=== PATIENT | male | born 1970 | race Caucasian/White ===

== ENCOUNTER 2017-07-30 19:18 | Emergency (ER) | payer OTHER ==
[~2017-07-30] VITALS: Ht 170.2 cm; Wt 107.3 kg
[2017-07-30] MEDS ORDERED: IBUPROFEN 800 MG TABLET PO ONE (21:15)
[2017-07-30] MEDS ORDERED: LIDOCAINE HCL/PF 1% 5 ML VIAL INJ ONE (21:15)
[2017-07-30] MEDS ORDERED: POVIDONE-IODINE 10% 15 ML SOLUTION UD TP ONE (21:15)
[2017-07-30] MEDS ORDERED: SULFAMETHOX/TRIMETH DS 800-160 MG/TABLET PO ONE (21:30)
[2017-07-30] MEDS ORDERED: CEPHALEXIN MONOHYDRATE 500 MG CAPSULE PO ONE (21:30)
[2017-07-30 22:45] VITALS: BP 128/82
== END 2017-07-30 22:53 | disposition home or self-care (01) ==
LOC: EMS 19:18
DX: L02.413 Cutaneous abscess of right upper limb (principal); F17.210 Nicotine dependence, cigarettes, uncomplicated
CPT/HCPCS: 10060; 99284; 99406; J3490

== ENCOUNTER 2018-07-02 18:46 | Emergency (ER) | payer OTHER ==
[~2018-07-02] VITALS: Ht 175.3 cm; Wt 95.5 kg
[2018-07-02 19:03] VITALS: BP 134/95
[2018-07-02] MEDS ORDERED: LIB5 PO (19:04)
== END 2018-07-02 21:30 | disposition left against medical advice (07) ==
LOC: EMS 18:56
DX: F10.129 Alcohol abuse with intoxication, unspecified (principal); Z53.21 Procedure and treatment not carried out due to patient leaving prior to being seen by health care provider

== ENCOUNTER 2020-02-13 12:27 | Emergency (ER) | payer SELFPAY ==
[~2020-02-13] VITALS: Ht 175.3 cm; Wt 113.6 kg
[~2020-02-13 12:27] MED LIST: LIB5 PO
[2020-02-13 12:47] VITALS: BP 114/77
== END 2020-02-13 16:32 | disposition left against medical advice (07) ==
LOC: EMS 12:28
DX: F10.129 Alcohol abuse with intoxication, unspecified (principal); Y90.9 Presence of alcohol in blood, level not specified; Z53.21 Procedure and treatment not carried out due to patient leaving prior to being seen by health care provider